=== PATIENT | male | born 1935 | race Caucasian/White ===

== ENCOUNTER 2021-02-04 15:02 | Inpatient (IN) | payer OTHER ==
[2021-02-04 15:57] LABS: Hemoglobin 7.6 g/dL (14.0-18.0); Red Blood Cell (RBC) Count 2.26 mill/uL (4.70-6.10); White Blood Cell (WBC) Count 12.3 thou/uL (4.8-10.8)
[2021-02-04 15:58] LABS: %Lymphocytes 16.6 % (21.0-51.0); %Monocytes 9.2 % (0.0-10.0); %Neutrophils 73.3 % (42.0-75.0); Mean Corpuscular HGB CONC 34.1 g/dL (32.0-36.0); Mean Corpuscular Hemoglobin 33.7 pg (27.0-31.0); Mean Corpuscular Volume 98.9 fL (78.0-98.0); Mean Platelet Volume 8.9 fL (7.4-10.4); Platelet Count 297 thou/uL (130-400); RBC Distribution Width 13.9 % (11.5-14.5)
[2021-02-04 15:59] LABS: #Eosinphils 0.1 thou/uL (0.0-0.7); #Monocytes 1.1 thou/uL (0.11-0.59); %Basophils 0.4 % (0.0-1.0); %Eosinophils 0.5 % (0.0-10.0)
[2021-02-04 16:40] LABS: Squamous Epithelial 0-3 HPF (0-3)
[2021-02-04 16:46] LABS: Amphetamine Not Detected (NotDetected); Barbiturates Screen Not Detected (NotDetected); Benzodiazepine Screen Not Detected (NotDetected); Cocaine Metabolite Screen Not Detected (NotDetected); Medtox Control Line Valid? VALID (VALID); Medtox Reader # READER 1; Methadone Not Detected (NotDetected); Methamphetamine Not Detected (NotDetected); Opiate Screen Not Detected (NotDetected); Oxycodone Screen Not Detected (NotDetected); Phencyclidine (PCP) Not Detected (NotDetected); THC/Cannabinoid Screen Not Detected (NotDetected); Tricyclic Screen Not Detected (NotDetected)
[2021-02-04 16:51] LABS: ALT (SGPT) 21 U/L (8-55); AST (SGOT) 33 U/L (5-34); Acetaminophen Less than 6.0 mcg/mL (10.0-30.0); Alcohol Less than 10 mg/dL (Less than 10); Alkaline Phosphatase 127 U/L (40-110); Anion Gap 14 mmol/L (10-20); BUN (Urea Nitrogen) 16 mg/dL (8.4-25.7); Bilirubin, Total 0.9 mg/dL (0.2-1.2); CK (CPK) 96 U/L (30-200); Calc. Creatinine Clearance 0 mL/min (70-130); Carbon Dioxide 21 mmol/L (23-31); Salicylate Less than 8.0 mg/dL (15.0-30.0)
[2021-02-04 17:00] LABS: Bacteria/HPF 1+ HPF (None Seen); Yeast-Budding 2+ HPF (None Seen)
[2021-02-04 17:01] LABS: Bilirubin Negative (Negative); Blood, Urine Trace (Negative); Glucose, Urine (Dipstick) Negative (Negative); Ketone, Urine Negative (Negative); Leukocyte Small (Negative); Nitrite Negative (Negative); Protein, Urine (Dipstick) Negative (Neg-Trace); pH, Urine 8.5 (5.0-9.0)
[2021-02-04 17:05] LABS: Albumin 2.5 g/dL (3.4-4.8); Chloride 102 mmol/L (98-107); Globulin 3.7 g/dL (2.4-3.5); Glucose 112 mg/dL (83-110); Potassium 4.4 mmol/L (3.5-5.1); Protein, Total 6.2 g/dL (5.8-8.1); Sodium 133 mmol/L (136-145)
[2021-02-04 17:14] LABS: CKMB 2.2 ng/mL (0-6.6)
[2021-02-04 17:22] LABS: Clarity Hazy (Clear)
[2021-02-04] MEDS ORDERED: Aspirin 300 MG Suppository ONE ×3 (17:39→17:51)
[2021-02-04 18:29] LABS: Troponin I 0.016 ng/mL (< 0.028)
[2021-02-04] MEDS: Cefepime 1 GM in Sodium Chloride 0.9% 100 ML IVPB SCH (21:44)
[2021-02-04 22:24] LABS: Troponin I 0.012 ng/mL (< 0.028)
[2021-02-04 22:34] VITALS: BMI 24.7
[2021-02-04] MEDS: Sodium Chloride 0.9% 1,000 ML IV SCH (23:54)
[2021-02-05 04:42] LABS: SARS-CoV-2 PCR by NAA Not Detected (NotDetected)
[2021-02-05 05:07] LABS: ALT (SGPT) 18 U/L (8-55); AST (SGOT) 28 U/L (5-34); Albumin 2.2 g/dL (3.4-4.8); Alkaline Phosphatase 121 U/L (40-110); Anion Gap 16 mmol/L (10-20); BUN (Urea Nitrogen) 13 mg/dL (8.4-25.7); Calc. Creatinine Clearance 58 mL/min (70-130); Calcium 7.8 mg/dL (7.8-10.44); Carbon Dioxide 14 mmol/L (23-31); Chloride 107 mmol/L (98-107); Globulin 3.8 g/dL (2.4-3.5); Glucose 79 mg/dL (83-110); Potassium 3.8 mmol/L (3.5-5.1); Sodium 133 mmol/L (136-145)
[2021-02-05] MEDS ORDERED: FLU VACC QS2020-21(65YR UP)/PF 240 MCG/0.7 ML SYRINGE IM ONE (09:00)
[2021-02-05] MEDS ORDERED: Aspirin 300 MG Suppository PR SCH (09:00)
[2021-02-05] MEDS ORDERED: Non-Formulary Item 1 EACH (Atorvastatin Calcium [Atorvastatin Calcium] 80 MG Tablet) PO SCH (09:00)
[2021-02-05] MEDS: Cefepime 1 GM in Sodium Chloride 0.9% 100 ML IVPB SCH ×2 (09:08→22:14)
[2021-02-05] MEDS: Enoxaparin Sodium 30 MG/0.3 ML SYRINGE SC SCH (09:25)
[2021-02-05] MEDS: Aspirin Chewable 81 MG TAB PO SCH (10:24)
[2021-02-05] MEDS: Amlodipine 10 MG TAB PO SCH (10:24)
[2021-02-05] MEDS: Carvedilol 25 MG TAB PO SCH (10:32)
[2021-02-05] MEDS: Atorvastatin Calcium 40 MG TAB PO SCH (10:32)
[2021-02-05] MEDS: Famotidine 20 MG TAB PO SCH ×2 (10:34→22:15)
[2021-02-05] MEDS: Clopidogrel Bisulfate 75 MG TAB PO SCH (10:34)
[2021-02-05] MEDS: Sodium Chloride 0.9% 1,000 ML IV SCH (12:11)
[2021-02-05 12:24] LABS: #Lymphocytes 1.6 thou/uL (1.20-3.40); #Neutrophils 8.7 thou/uL (1.40-6.50); %Basophils 0.3 % (0.0-1.0); %Eosinophils 0.4 % (0.0-10.0); %Lymphocytes 13.9 % (21.0-51.0); %Monocytes 8.7 % (0.0-10.0); %Neutrophils 76.7 % (42.0-75.0); Hemoglobin 8.2 g/dL (14.0-18.0); Mean Corpuscular HGB CONC 33.3 g/dL (32.0-36.0); Mean Corpuscular Hemoglobin 33.1 pg (27.0-31.0); Mean Corpuscular Volume 99.3 fL (78.0-98.0); Mean Platelet Volume 8.8 fL (7.4-10.4); Platelet Count 310 thou/uL (130-400); RBC Distribution Width 14.4 % (11.5-14.5); Red Blood Cell (RBC) Count 2.48 mill/uL (4.70-6.10); White Blood Cell (WBC) Count 11.4 thou/uL (4.8-10.8)
[2021-02-05] MEDS: Acetaminophen 325 MG TAB PO PRN (22:15)
[2021-02-06 06:35] LABS: Hemoglobin 7.8 g/dL (14.0-18.0); Mean Corpuscular HGB CONC 32.9 g/dL (32.0-36.0); Mean Platelet Volume 9.1 fL (7.4-10.4); Platelet Count 313 thou/uL (130-400); RBC Distribution Width 14.5 % (11.5-14.5); Red Blood Cell (RBC) Count 2.35 mill/uL (4.70-6.10); White Blood Cell (WBC) Count 13.5 thou/uL (4.8-10.8)
[2021-02-06 06:45] LABS: ALT (SGPT) 18 U/L (8-55); AST (SGOT) 28 U/L (5-34); Albumin 2.4 g/dL (3.4-4.8); Alkaline Phosphatase 123 U/L (40-110); Anion Gap 18 mmol/L (10-20); BUN (Urea Nitrogen) 12 mg/dL (8.4-25.7); Calc. Creatinine Clearance 59 mL/min (70-130); Calcium 8.1 mg/dL (7.8-10.44); Carbon Dioxide 18 mmol/L (23-31); Chloride 106 mmol/L (98-107); Glucose 79 mg/dL (83-110); Iron 20 ug/dL (65-175); Iron Binding Capacity, Total 153 mcg/dL (261-462); Potassium 3.9 mmol/L (3.5-5.1); Protein, Total 6.4 g/dL (5.8-8.1); Sodium 138 mmol/L (136-145)
[2021-02-06] MEDS: Clopidogrel Bisulfate 75 MG TAB PO SCH (08:41)
[2021-02-06] MEDS: Aspirin Chewable 81 MG TAB PO SCH (08:41)
[2021-02-06] MEDS: Atorvastatin Calcium 40 MG TAB PO SCH (08:41)
[2021-02-06] MEDS: Carvedilol 25 MG TAB PO SCH (08:41)
[2021-02-06] MEDS: Amlodipine 10 MG TAB PO SCH (08:41)
[2021-02-06] MEDS: Famotidine 20 MG TAB PO SCH ×2 (08:41→21:25)
[2021-02-06] MEDS: Cefepime 1 GM in Sodium Chloride 0.9% 100 ML IVPB SCH (08:42)
[2021-02-06] MEDS: Enoxaparin Sodium 30 MG/0.3 ML SYRINGE SC SCH (09:48)
[2021-02-06] MEDS ORDERED: Sulfameth/Trimethoprim DS 800-160mg TAB PO SCH ×2 (10:15→21:00)
[2021-02-06] MEDS: cefTRIAXone\\ROCEPHIN 2 GM in Sodium Chloride 0.9% 100 ML IVPB SCH (15:07)
[2021-02-06] MEDS: Cefdinir 300 MG CAP PO SCH (21:25)
[2021-02-07 07:00] LABS: Mean Corpuscular HGB CONC 32.8 g/dL (32.0-36.0); Mean Corpuscular Hemoglobin 32.9 pg (27.0-31.0); Platelet Count 307 thou/uL (130-400); RBC Distribution Width 14.8 % (11.5-14.5); Red Blood Cell (RBC) Count 2.43 mill/uL (4.70-6.10); White Blood Cell (WBC) Count 11.9 thou/uL (4.8-10.8)
[2021-02-07] MEDS: Carvedilol 25 MG TAB PO SCH (08:34)
[2021-02-07] MEDS: Clopidogrel Bisulfate 75 MG TAB PO SCH (08:34)
[2021-02-07] MEDS: Cefdinir 300 MG CAP PO SCH ×2 (08:34→19:33)
[2021-02-07] MEDS: Atorvastatin Calcium 40 MG TAB PO SCH (08:34)
[2021-02-07] MEDS: Famotidine 20 MG TAB PO SCH ×2 (08:34→19:33)
[2021-02-07] MEDS: Fluconazole In NaCl,Iso-Osm 200 MG in Premix Bag 1 BAG IVPB SCH (08:35)
[2021-02-07] MEDS: Enoxaparin Sodium 30 MG/0.3 ML SYRINGE SC SCH (08:35)
[2021-02-07] MEDS: Aspirin Chewable 81 MG TAB PO SCH (08:35)
[2021-02-07] MEDS: Amlodipine 10 MG TAB PO SCH (08:35)
[2021-02-07] MEDS: cefTRIAXone\\ROCEPHIN 2 GM in Sodium Chloride 0.9% 100 ML IVPB SCH (14:48)
[2021-02-08 06:06] LABS: #Eosinphils 0.2 thou/uL (0.0-0.7); #Monocytes 1.2 thou/uL (0.11-0.59); #Neutrophils 7.7 thou/uL (1.40-6.50); %Basophils 0.1 % (0.0-1.0); %Eosinophils 1.6 % (0.0-10.0); %Lymphocytes 18.2 % (21.0-51.0); %Monocytes 10.7 % (0.0-10.0); %Neutrophils 69.5 % (42.0-75.0); Hemoglobin 7.8 g/dL (14.0-18.0); Mean Corpuscular HGB CONC 33.5 g/dL (32.0-36.0); Mean Corpuscular Hemoglobin 33.6 pg (27.0-31.0); Mean Platelet Volume 8.7 fL (7.4-10.4); Platelet Count 296 thou/uL (130-400); RBC Distribution Width 14.9 % (11.5-14.5); Red Blood Cell (RBC) Count 2.32 mill/uL (4.70-6.10)
[2021-02-08 06:32] LABS: Anion Gap 11 mmol/L (10-20); BUN (Urea Nitrogen) 15 mg/dL (8.4-25.7); Calc. Creatinine Clearance 65 mL/min (70-130); Calcium 7.7 mg/dL (7.8-10.44); Carbon Dioxide 21 mmol/L (23-31); Chloride 108 mmol/L (98-107); Glucose 104 mg/dL (83-110); Potassium 3.4 mmol/L (3.5-5.1); Sodium 137 mmol/L (136-145)
[2021-02-08] MEDS: Fluconazole In NaCl,Iso-Osm 200 MG in Premix Bag 1 BAG IVPB SCH (09:11)
[2021-02-08] MEDS: Clopidogrel Bisulfate 75 MG TAB PO SCH (09:14)
[2021-02-08] MEDS: Cefdinir 300 MG CAP PO SCH (09:14)
[2021-02-08] MEDS: Enoxaparin Sodium 30 MG/0.3 ML SYRINGE SC SCH (09:14)
[2021-02-08] MEDS: Atorvastatin Calcium 40 MG TAB PO SCH (09:14)
[2021-02-08] MEDS: Famotidine 20 MG TAB PO SCH ×2 (09:14→20:08)
[2021-02-08] MEDS: Amlodipine 10 MG TAB PO SCH (09:14)
[2021-02-08] MEDS: Aspirin Chewable 81 MG TAB PO SCH (09:15)
[2021-02-08] MEDS: Carvedilol 25 MG TAB PO SCH (09:15)
[2021-02-08] MEDS: cefTRIAXone\\ROCEPHIN 2 GM in Sodium Chloride 0.9% 100 ML IVPB SCH (14:37)
[2021-02-09 06:15] LABS: #Basophils 0.1 thou/uL (0.0-0.2); #Eosinphils 0.1 thou/uL (0.0-0.7); #Lymphocytes 2.4 thou/uL (1.20-3.40); #Monocytes 1.4 thou/uL (0.11-0.59); #Neutrophils 9.4 thou/uL (1.40-6.50); %Basophils 0.4 % (0.0-1.0); %Eosinophils 0.8 % (0.0-10.0); %Lymphocytes 18.3 % (21.0-51.0); %Monocytes 10.3 % (0.0-10.0); %Neutrophils 70.3 % (42.0-75.0); Hemoglobin 8.7 g/dL (14.0-18.0); Mean Corpuscular HGB CONC 32.2 g/dL (32.0-36.0); Mean Corpuscular Volume 99.6 fL (78.0-98.0); Mean Platelet Volume 8.8 fL (7.4-10.4); Platelet Count 319 thou/uL (130-400); RBC Distribution Width 14.9 % (11.5-14.5); Red Blood Cell (RBC) Count 2.72 mill/uL (4.70-6.10); White Blood Cell (WBC) Count 13.4 thou/uL (4.8-10.8)
[2021-02-09 06:36] LABS: Anion Gap 12 mmol/L (10-20); BUN (Urea Nitrogen) 13 mg/dL (8.4-25.7); Calc. Creatinine Clearance 65 mL/min (70-130); Calcium 7.9 mg/dL (7.8-10.44); Carbon Dioxide 22 mmol/L (23-31); Chloride 106 mmol/L (98-107); Glucose 120 mg/dL (83-110); Potassium 3.4 mmol/L (3.5-5.1); Sodium 137 mmol/L (136-145)
[2021-02-09] MEDS: Aspirin Chewable 81 MG TAB PO SCH (09:17)
[2021-02-09] MEDS: Atorvastatin Calcium 40 MG TAB PO SCH (09:17)
[2021-02-09] MEDS: Carvedilol 25 MG TAB PO SCH (09:17)
[2021-02-09] MEDS: Famotidine 20 MG TAB PO SCH ×2 (09:17→19:30)
[2021-02-09] MEDS: Clopidogrel Bisulfate 75 MG TAB PO SCH (09:17)
[2021-02-09] MEDS: Amlodipine 10 MG TAB PO SCH (09:18)
[2021-02-09] MEDS: Enoxaparin Sodium 30 MG/0.3 ML SYRINGE SC SCH (09:24)
[2021-02-10 06:06] LABS: #Eosinphils 0.1 thou/uL (0.0-0.7); #Lymphocytes 2.4 thou/uL (1.20-3.40); #Monocytes 1.6 thou/uL (0.11-0.59); #Neutrophils 10.6 thou/uL (1.40-6.50); %Basophils 0.1 % (0.0-1.0); %Eosinophils 0.4 % (0.0-10.0); %Lymphocytes 16.2 % (21.0-51.0); %Monocytes 10.8 % (0.0-10.0); %Neutrophils 72.5 % (42.0-75.0); Hemoglobin 8.2 g/dL (14.0-18.0); Mean Corpuscular HGB CONC 32.5 g/dL (32.0-36.0); Mean Corpuscular Hemoglobin 32.3 pg (27.0-31.0); Mean Corpuscular Volume 99.3 fL (78.0-98.0); Mean Platelet Volume 8.6 fL (7.4-10.4); Platelet Count 306 thou/uL (130-400); RBC Distribution Width 14.5 % (11.5-14.5); Red Blood Cell (RBC) Count 2.55 mill/uL (4.70-6.10); White Blood Cell (WBC) Count 14.6 thou/uL (4.8-10.8)
[2021-02-10 06:27] LABS: Anion Gap 14 mmol/L (10-20); BUN (Urea Nitrogen) 12 mg/dL (8.4-25.7); Calc. Creatinine Clearance 72 mL/min (70-130); Calcium 7.8 mg/dL (7.8-10.44); Carbon Dioxide 19 mmol/L (23-31); Chloride 108 mmol/L (98-107); Glucose 102 mg/dL (83-110); Potassium 3.5 mmol/L (3.5-5.1); Sodium 137 mmol/L (136-145)
[2021-02-10] MEDS: Famotidine 20 MG TAB PO SCH ×2 (08:23→20:51)
[2021-02-10] MEDS: Aspirin Chewable 81 MG TAB PO SCH (08:23)
[2021-02-10] MEDS: Enoxaparin Sodium 30 MG/0.3 ML SYRINGE SC SCH (08:23)
[2021-02-10] MEDS: Clopidogrel Bisulfate 75 MG TAB PO SCH (08:23)
[2021-02-10] MEDS: Carvedilol 25 MG TAB PO SCH (08:23)
[2021-02-10] MEDS: Atorvastatin Calcium 40 MG TAB PO SCH (08:23)
[2021-02-10] MEDS: Amlodipine 10 MG TAB PO SCH (08:23)
[2021-02-10] MEDS: Acetaminophen 325 MG TAB PO PRN (20:51)
[2021-02-11 06:23] LABS: #Eosinphils 0.1 thou/uL (0.0-0.7); #Lymphocytes 2.4 thou/uL (1.20-3.40); #Monocytes 1.5 thou/uL (0.11-0.59); #Neutrophils 10.8 thou/uL (1.40-6.50); %Basophils 0.3 % (0.0-1.0); %Eosinophils 0.9 % (0.0-10.0); %Lymphocytes 15.9 % (21.0-51.0); %Monocytes 9.8 % (0.0-10.0); %Neutrophils 73.1 % (42.0-75.0); Hemoglobin 7.6 g/dL (14.0-18.0); Mean Corpuscular Hemoglobin 31.7 pg (27.0-31.0); Mean Corpuscular Volume 99.1 fL (78.0-98.0); Mean Platelet Volume 8.6 fL (7.4-10.4); Platelet Count 304 thou/uL (130-400); RBC Distribution Width 14.6 % (11.5-14.5); Red Blood Cell (RBC) Count 2.41 mill/uL (4.70-6.10); White Blood Cell (WBC) Count 14.8 thou/uL (4.8-10.8)
[2021-02-11 06:43] LABS: Anion Gap 9 mmol/L (10-20); BUN (Urea Nitrogen) 13 mg/dL (8.4-25.7); Calc. Creatinine Clearance 73 mL/min (70-130); Calcium 7.6 mg/dL (7.8-10.44); Carbon Dioxide 21 mmol/L (23-31); Chloride 109 mmol/L (98-107); Glucose 114 mg/dL (83-110); Potassium 3.3 mmol/L (3.5-5.1); Sodium 136 mmol/L (136-145)
[2021-02-11] MEDS: Carvedilol 25 MG TAB PO SCH (08:21)
[2021-02-11] MEDS: Clopidogrel Bisulfate 75 MG TAB PO SCH (08:21)
[2021-02-11] MEDS: Amlodipine 10 MG TAB PO SCH (08:21)
[2021-02-11] MEDS: Atorvastatin Calcium 40 MG TAB PO SCH (08:21)
[2021-02-11] MEDS: Enoxaparin Sodium 30 MG/0.3 ML SYRINGE SC SCH (08:21)
[2021-02-11] MEDS: Aspirin Chewable 81 MG TAB PO SCH (08:21)
[2021-02-11] MEDS: Famotidine 20 MG TAB PO SCH ×2 (08:21→21:33)
[2021-02-11] MEDS ORDERED: Potassium Chloride 20 MEQ TAB PO SCH (14:30)
[2021-02-12 06:58] LABS: #Eosinphils 0.2 thou/uL (0.0-0.7); #Lymphocytes 2.5 thou/uL (1.20-3.40); #Monocytes 1.5 thou/uL (0.11-0.59); #Neutrophils 10.5 thou/uL (1.40-6.50); %Basophils 0.3 % (0.0-1.0); %Eosinophils 1.2 % (0.0-10.0); %Lymphocytes 16.8 % (21.0-51.0); %Monocytes 10.2 % (0.0-10.0); %Neutrophils 71.5 % (42.0-75.0); Hemoglobin 8.4 g/dL (14.0-18.0); Mean Corpuscular HGB CONC 33.4 g/dL (32.0-36.0); Mean Corpuscular Hemoglobin 32.9 pg (27.0-31.0); Mean Corpuscular Volume 98.6 fL (78.0-98.0); Mean Platelet Volume 8.7 fL (7.4-10.4); Platelet Count 305 thou/uL (130-400); RBC Distribution Width 14.4 % (11.5-14.5); Red Blood Cell (RBC) Count 2.54 mill/uL (4.70-6.10); White Blood Cell (WBC) Count 14.7 thou/uL (4.8-10.8)
[2021-02-12 07:08] LABS: Anion Gap 13 mmol/L (10-20); BUN (Urea Nitrogen) 12 mg/dL (8.4-25.7); Calc. Creatinine Clearance 73 mL/min (70-130); Calcium 7.8 mg/dL (7.8-10.44); Carbon Dioxide 20 mmol/L (23-31); Chloride 109 mmol/L (98-107); Glucose 106 mg/dL (83-110); Potassium 3.5 mmol/L (3.5-5.1); Sodium 138 mmol/L (136-145)
[2021-02-12] MEDS: Carvedilol 25 MG TAB PO SCH (08:54)
[2021-02-12] MEDS: Famotidine 20 MG TAB PO SCH ×2 (08:54→20:54)
[2021-02-12] MEDS: Atorvastatin Calcium 40 MG TAB PO SCH (08:54)
[2021-02-12] MEDS: Clopidogrel Bisulfate 75 MG TAB PO SCH (08:54)
[2021-02-12] MEDS: Aspirin Chewable 81 MG TAB PO SCH (08:54)
[2021-02-12] MEDS: Enoxaparin Sodium 30 MG/0.3 ML SYRINGE SC SCH (08:55)
[2021-02-12] MEDS: Amlodipine 10 MG TAB PO SCH (08:59)
[2021-02-12] MEDS: Acetaminophen 325 MG TAB PO PRN ×2 (09:06→17:26)
[2021-02-13] MEDS: Acetaminophen 325 MG TAB PO PRN (06:10)
[2021-02-13] MEDS: Famotidine 20 MG TAB PO SCH (09:01)
[2021-02-13] MEDS: Amlodipine 10 MG TAB PO SCH (09:01)
[2021-02-13] MEDS: Aspirin Chewable 81 MG TAB PO SCH (09:02)
[2021-02-13] MEDS: Clopidogrel Bisulfate 75 MG TAB PO SCH (09:03)
[2021-02-13] MEDS: Carvedilol 25 MG TAB PO SCH (09:03)
[2021-02-13] MEDS: Atorvastatin Calcium 40 MG TAB PO SCH (09:03)
[2021-02-13] MEDS: Enoxaparin Sodium 30 MG/0.3 ML SYRINGE SC SCH (09:17)
[2021-02-13 13:24] VITALS: BP 130/65; TEMP 97.5
== END 2021-02-13 18:28 | disposition home health service (06) | DRG 698 ==
LOC: ERS 15:02 → 2NO 17:54 → T4-B 02-05 21:51
PROVIDERS: ADMIT Internal Medicine; ATTEND Internal Medicine
DX: T83.518A Infection and inflammatory reaction due to other urinary catheter, initial encounter (principal); G93.41 Metabolic encephalopathy; I10 Essential (primary) hypertension; Z20.822 Contact with and (suspected) exposure to COVID-19; E78.5 Hyperlipidemia, unspecified; I25.10 Atherosclerotic heart disease of native coronary artery without angina pectoris; Y84.6 Urinary catheterization as the cause of abnormal reaction of the patient, or of later complication, without mention of misadventure at the time of the procedure; D53.9 Nutritional anemia, unspecified; N40.1 Benign prostatic hyperplasia with lower urinary tract symptoms; R33.8 Other retention of urine; F01.50 Vascular dementia, unspecified severity, without behavioral disturbance, psychotic disturbance, mood disturbance, and anxiety; F09 Unspecified mental disorder due to known physiological condition; Z91.81 History of falling; Z79.01 Long term (current) use of anticoagulants; Z79.82 Long term (current) use of aspirin; Z79.899 Other long term (current) drug therapy; Z95.1 Presence of aortocoronary bypass graft; S72.92XD Unspecified fracture of left femur, subsequent encounter for closed fracture with routine healing
CPT/HCPCS: 36415; 36416; 71045; 80048; 80053; 80306; 80307; 81003; 81015; 82140; 82550; 82553; 82607; 82728; 82746; 83540; 83550; 83605; 84443; 84484; 85025; 85027; 87040; 87086; 87149; 87635; 93005; J0692; J0696; J1450; J1650; J3490; U0003; U0005